=== PATIENT | female | born 1980 | race Caucasian/White ===

== ENCOUNTER → 2019-01-08 | Outpatient (CLI) | payer BC, OTHER ==
[~2019-01-08] MED LIST: CEFEPIME HCL2 GM IV; FISH OIL 500 M1 EAC1 PO; HALCION0.25 MG PO; NEXIUM40 MG PO
--- NOTE | 2019-01-08 15:05 | NUR ---
VASCULAR ACCESS CONSULTED FOR PICC PLACEMENT. DISCUSSED WITH PT BENEFITS AND RISKS OF PICC, VERBALIZED UNDERSTANDING. CONSENT SIGNED. PT WAS PREPPED AND DRAPED FOR MAX BARRIER PRECAUTIONS,1% LIDOCAINE GIVEN 4FR SL POWER PICC INSERTED BRANDEN BASILIC TRIMMED AT 44CM INSERTED TO 1CM EXTERNAL. CXR DONE.
--- NOTE | 2019-01-08 15:31 | NUR ---
CXR CONFIRMED PLACEMENT, PICC RELEASED FOR IMMEDIATE USE PER PROTOCOL TO CINDY LYNN
[2019-01-08 15:45] VITALS: BP 111/65
[2019-01-08 16:15] VITALS: BP 105/70
[2019-01-08 16:20] VITALS: BP 105/70
--- NOTE | 2019-01-08 16:20 | NUR ---
PT HERE FOR PICC LINE PLACEMENT AND 1ST DOSE IV ANTIBIOTICS. PT APPEARED QUITE ANXIOUS ENTIRE VISIT. VASCULAR ACCESS NURSE PLACED PICC L UPPER ARM. SITE LOOKED GOOD UPON COMPLETION AND TUBING SECURED WTIH SURGILAST PRIOR TO DISMISSAL. [facility] CLINICAL ACCOUT EXECUTIVE NURSE, DASH, CAME TO THE [facility]FUSION CLINIC AND SPENT EXTENSIVE TIME WITH PT TO EXPLAIN EVERYTING FROM PICC TIRE BUFFER, DRUG INFO, HOW TO DO INFUSIONS, ETC. PT PRACTICED WITH EQUIPMENT PRIOR TO DISMISSAL. THIS NURSE REVIEWED TEACHING AND PT'S COMFORT LEVEL ASSESSED PRIOR TO DISCHARGE. MOTHER PRESENT FOR ALL TEACHING PER PT REQUEST SHE IS A NURSE. PT TOLERATED INFUSION WITHOUT INCIDENT, NO S/S REACTION. WATCHED FOR 35 MIN POST INFUSION. DISMISSED IN STABLE CONDITION.
== END ==
LOC: OR 11:47 → OPONC 11:58
DX: A49.8 Other bacterial infections of unspecified site (principal); J32.9 Chronic sinusitis, unspecified
CPT/HCPCS: 27000; 95000

== ENCOUNTER 2019-01-09 17:00 | Emergency (ER) | payer BC, OTHER ==
[~2019-01-09] VITALS: Ht 172.7 cm; Wt 59.9 kg
[2019-01-09 18:08] LABS: ABSOLUTE NEUTROPHILS 4.6 thou/uL (1.4-8.2); BASOPHILS 0.4 % (0.0-2.0); EOSINOPHILS 0.7 % (0.0-3.0); HEMATOCRIT 40.9 % (37.0-47.0); HEMOGLOBIN 13.8 gm/dL (12.0-15.0); LYMPHOCYTES 20.2 % (24.0-44.0); MCH 32.4 pg (26.0-34.0); MCHC 33.9 g/dL (28.0-37.0); MCV 95.5 fL (80.0-100.0); PLATELET COUNT 187 thou/uL (150-400); POLYS 69.7 % (36.0-66.0); RBC 4.28 mil/uL (4.20-5.00); WBC 6.6 thou/uL (4.0-11.0)
[2019-01-09 18:19] LABS: ANION GAP 8 mmol/L (7-16); BUN 14 mg/dL (7-18); CALCIUM 9.4 mg/dL (8.5-10.1); CHLORIDE 103 mmol/L (98-107); CO2 26 mmol/L (21-32); CREATININE 0.9 mg/dL (0.6-1.0); GLUCOSE 101 mg/dL (74-106); POTASSIUM 3.6 mmol/L (3.5-5.1); SODIUM 137 mmol/L (136-145)
[2019-01-09 18:28] LABS: ALBUMIN 3.8 g/dL (3.4-5.0); SGOT 13 U/L (15-37); SGPT 12 U/L (30-65); TOTAL BILIRUBIN 0.4 mg/dL (<0.1-1.0); TOTAL PROTEIN 6.9 g/dL (6.4-8.2); TROPONIN-I <0.06 ng/mL (<0.06)
[2019-01-09 18:31] LABS: DIRECT BILIRUBIN 0.1 mg/dL (<0.1-0.3)
[2019-01-09 19:38] VITALS: BP 109/62
--- NOTE | 2019-01-11 09:10 | EKG ---
[address] [place] [address] ELECTROCARDIOGRAM REPORT Name: HERMINIOLETI Rebolledo Room #[id number] ������������������ Admission: 01/09/19 ������������������ Attend Phys: Discharge: 01/09/19 ������������������ Date of : 80 Report #: [id number] ����������������������������������������������������������������� [id number] THIS REPORT FOR: //name// [facility] ED Test Date: 2019-01-09 Test Time: 17:04:49 Pat Name: LETI DURHAM Department: Room: Gender: F Ct Scan Special Procedures Technologist: : [id number] Requested By: Behzad Pisano Order Number: [id number] MD: Cesar Barrera Measurements Intervals [place] Rate: 68 P: 66 SD: 140 QRS: 103 QRSD: 94 T: 23 QT: 366 QTc: 390 Interpretive Statements Sinus rhythm Right axis deviation Minimal ST depression, diffuse leads Baseline wander in lead(s) V6 No previous ECG available for comparison Electronically Signed On 01-11-2019 9:10:23 CDT by Cesar Barrera [email or web address] ��������������������������������������������� <ELECTRONICALLY SIGNED> ���������������������������������������� By: Cesar Barrera MD, [facility] ��������������������������������������������� 01/11/19 0910 1704 170 Cesar Barrera MD, FACC /EPI
== END 2019-01-09 19:39 | disposition home or self-care (01) ==
LOC: ER 17:00
PROVIDERS: Emergency Medicine
DX: R07.89 Other chest pain (principal); Z79.2 Long term (current) use of antibiotics; Z88.1 Allergy status to other antibiotic agents; Z98.890 Other specified postprocedural states